=== PATIENT | female | born 1950 | race Caucasian/White ===

== ENCOUNTER → 2020-02-15 10:57 | Outpatient (BNVA) | payer MEDICARE, SELFPAY | PROVIDERS: Family Provider Nurse Practitioner Family; PCP Nurse Practitioner Family; Visit Provider Nurse Practitioner | DX: I10 Essential (primary) hypertension (principal); E78.2 Mixed hyperlipidemia | CPT/HCPCS: 80053; 80061; 81000; 84443; 85025 ==

== ENCOUNTER 2020-08-28 19:22 | Emergency (ER) | payer MEDICARE, SELFPAY ==
[2020-08-28 19:32] VITALS: BP 118/71; PULSE 73; RESP 18; TEMP 36.3; O2SAT 100; BMI 25.7
--- NOTE | 2020-08-28 19:44 | XRR_ITS ---
PROCEDURE INFORMATION: Exam: XR Left Elbow Exam date and time: 08/28/2020 8:05 PM Age: 70 years old Clinical indication: Injury or trauma; Fall; Blunt trauma (contusions or hematomas); Elbow; Left; Injury date: 08/28/20 TECHNIQUE: Imaging protocol: XR Left elbow. Views: 3 or more views. COMPARISON: No relevant prior studies available. FINDINGS: Bones/joints: Acute angulated displaced fractures of the proximal radius and ulna diaphysis with overriding. Soft tissues: Soft tissue edema proximal forearm. XR/XR elbow LT min 3V* [id number] IMPRESSION: Proximal diaphyseal angulated displaced fractures radius and ulna.
--- NOTE | 2020-08-28 20:04 | XRR_ITS ---
PROCEDURE INFORMATION: Exam: XR Left Forearm Exam date and time: 08/28/2020 8:06 PM Age: 70 years old Clinical indication: Injury or trauma; Fall; Blunt trauma (contusions or hematomas); Arm, lower; Left; Injury date: 08/28/20 TECHNIQUE: Imaging protocol: XR Left forearm. Views: 2 views. COMPARISON: CR XR elbow LT min 3V* [id number] 08/28/2020 8:35 PM FINDINGS: Bones/joints: Complete overriding displaced fractures at the junction of proximal to mid diaphysis of the radius and ulna with distal fracture fragments displaced posteriorly. Soft tissues: Soft tissue edema overlies the proximal forearm. XR/XR forearm LT 2V [id number] IMPRESSION: Acute displaced overriding fractures see radius and ulna at the junction of proximal to mid 1/3 diaphysis.
--- NOTE | 2020-08-28 20:04 | XRR_ITS ---
PROCEDURE INFORMATION: Exam: XR Left Wrist Exam date and time: 08/28/2020 8:06 PM Age: 70 years old Clinical indication: Injury or trauma; Fall; Blunt trauma (contusions or hematomas); Wrist; Left; Injury date: 08/28/20 TECHNIQUE: Imaging protocol: XR Left wrist. Views: 3 or more views. COMPARISON: No relevant prior studies available. FINDINGS: Bones/joints: Osteopenia. Accessory ossicle adjacent to the radial 1st metacarpophalangeal joint. Soft tissues: Normal. XR/XR wrist LT min 3V* [id number] IMPRESSION: 1. No acute osseous abnormality.
--- NOTE | 2020-08-28 20:10 | ED_ITS ---
HPI - Fall General: Chief Complaint: Fall Stated Complaint: extremity injury, left arm Time Seen by Provider: 08/28/20 20:01 Source: patient Mode of arrival: ambulatory Limitations: no limitations History of Present Illness: HPI Narrative: Briseida is a nice 70-year-old female who suffered a trip and fall at home. She landed on her left arm. She is complaining of pain to the left elbow, left forearm and left wrist. Patient states she heard a snap there. She denies any distal numbness, tingling or weakness. Patient denies any head or neck injury. Associated symptoms-after fall: Denies abdominal pain, chest pain, confusion, difficulty walking, headache(s), hematuria, lightheadedness, neck pain or vertigo Review of Systems Const: Denies: fever(s), chills, body aches, fatigue, malaise or diaphoresis Eyes: Denies: change in vision, blurry vision, photophobia, eye discomfort, eye discharge, eye redness or yellow eyes ENMT: Denies: throat pain, odynophagia, hoarseness, swelling of lips/tongue, ear or mastoid pain, ear discharge, change in hearing or nasal discharge Card: Denies: chest pain, palpitations, irregular heart rhythm, edema, lightheadedness, syncope, pre-syncope, dyspnea on exertion or orthopnea Resp: Denies: dyspnea, productive cough, non-productive cough, wheezing, hemoptysis or chest congestion GI: Denies: abdominal pain, nausea, vomiting, hematemesis, coffee ground emesis, heartburn, diarrhea, constipation, GI cramping, hematochezia or melena : Denies: flank pain, dysuria, urinary frequency, urinary urgency or hematuria Musc: Reports: extremity pain; Denies: neck pain, back pain, extremity swelling, joint pain, joint swelling, joint redness, joint warmth or joint stiffness Skin/Breast: Denies: rash, pruritus, erythema, skin pain or skin tenderness Neuro: Denies: headache(s), numbness in extremities, weakness in extremities, sensory changes, lack of coordination, difficulty walking, dizziness, vertigo, confusion, Slurred speech present or seizure-like activity Nima/Lymph: Denies: easy bruising, easy bleeding, petechiae, purpura or enlarged lymph nodes All/Imm: Denies: urticaria, throat swelling, tongue swelling, facial swelling or acute wheezing [facility] ED PFSH: Medical History (Updated 08/28/20 @ 21:52 by Ryanne Saucedo) Essential (primary) hypertension Hepatic cyst 3cm 05/[address] 2018 Mixed hyperlipidemia Surgical History History of colonoscopy 2018 Hx of appendectomy Hx of endoscopy 2019 Hx of ovarian cyst Family History Mother Stroke Brother CAD (coronary artery disease) Denies family history of Clotting disorder Anesthesia complication Social History Smoking and tobacco status: never smoked Second hand smoke exposure: No Smoking risk assessment/counseling performed?: No Alcohol intake: never Desire information about alcohol rehabilitation?: No Counseling given: No Desire information about substance/drug rehabilitation?: No Counseling given: No Adopted: No Caregiver/support person: No Lives independently: Yes Household members: none Housing: House Marital status: / Number of children: 2 service: No Current occupational status: retired Current occupational exposures/hazards: No History of recent travel: No Current gender identity: Female Course ED course: 2227 - Vital Signs: Vital signs: Vital Signs Temperature 97.4 F L 08/28/20 19:32 Pulse Rate 74 08/28/20 21:22 Respiratory Rate 16 08/28/20 21:22 Blood Pressure 133/68 08/28/20 21:22 Pulse Oximetry 94 08/28/20 21:22 MDM - Fall MDM Narrative: Medical decision making narrative: 2157 - Briseida is a very nice 70-year-old female who comes in complaining of pain in her left forearm after falling. She denies any injury to her head, neck or any other part of her body. She is now on blood thinners. Patient only has a history of hypertension. I reviewed the x-rays with Dr. Walter who wants the patient splinted but no attempt at reduction tonight. He plans to take the patient to surgery on Tuesday for definitive care. Of note the patient had an arterial cannulation of her right brachial artery by nursing. She had some skin changes after morphine and Zofran were given. The IV was discontinued and at this time the skin changes have resolved. The patient has had multiple radial pulse checks and they are strong without any difference from the left. I did review this with Dr. Garsia who felt that this was adequate but if the patient noticed any changes such as coldness to her hand, numbness or weakness that she would need to return to the ER immediately. Dr. Walter was aware of this as well. Imaging Data^: Left wrist/forearm/Elbow: Attestation: I personally reviewed and interpreted this imaging study as follows: My impression: Midshaft forearm fracture involving both radius and ulna with 100% displacement and shortening Discharge Plan Discharge Patient Disposition: Home Clinical Impression: Forearm fractures, both bones, closed Qualifiers: Encounter type: initial encounter Laterality: left Qualified Code(s): S52.92XA - Unspecified fracture of left forearm, initial encounter for closed fracture Condition: Stable Prescriptions: [place] 5-325 mg tablet 1 tab PO Q6H PRN (Reason: pain) 5 Days Qty: 20 RF: 0 Zofran 4 mg tablet 4 mg PO Q6H PRN (Reason: nausea and vomiting) Qty: 20 RF: 0 No Action amlodipine 10 mg tablet 10 mg PO DAILY Qty: 90 RF: 1 lisinopril 20 mg tablet 20 mg PO DAILY Qty: 90 RF: 1 lovastatin 40 mg tablet 40 mg PO DAILY Qty: 90 RF: 1 Discharge Orders: Discharge Order (Routine); Ordered 08/28/20 Ordered By: Ryanne Saucedo Referrals: Brandie Allred FNP-C [Primary Care Provider] - Harsha Walter MD [Physician] - 1-3 days (Call Dr. Walter's office first thing tomorrow morning and they may contact you as well for the plan on surgery to fix your fractures.) Discharge Diet: Advance as tolerated Discharge Activity: Limit activity as instructed Patient Instructions: Fractures - Forearm Activity Restrictions/Additional Instructions: Please return to the ER immediately for any of the signs or symptoms listed on your discharge instruction sheets, worsening/changing of your symptoms, you are not getting better as quickly as expected, or for ANY other cause or concerns. Use your splint and sling at all times until instructed further by Dr. Walter. Return to the ER for numbness, weakness, uncontrolled pain, or for any other cause for concern. Coding Level of Care Code ED Analytical Statistician for Hermann Mclain
[2020-08-28 20:21] VITALS: RESP 18
[2020-08-28] MEDS: morphine 4 mg/mL SDV 1 mL IVP (20:21)
[2020-08-28] MEDS: ondansetron 2 mg/ML SDV 2 mL 4 MG IVP (20:22)
[2020-08-28] MEDS: sodium chloride 0.9% 1,000 ML 100 ML IV (21:04)
--- NOTE | 2020-08-28 21:19 | XRR_ITS ---
PROCEDURE INFORMATION: Exam: XR Chest, 1 View Exam date and time: 08/28/2020 9:23 PM Age: 70 years old Clinical indication: Pre-operative exam; Cardiovascular screening and respiratory screening exam; Additional info: Pre op TECHNIQUE: Imaging protocol: XR of the chest Views: 1 view. COMPARISON: No relevant prior studies available. FINDINGS: Lungs: 0.9 cm hyperdense nodule right upper lung most suspicious for calcified granuloma. Possible hilar calcified granulomata. No focal consolidation. Pleural space: Unremarkable. No pleural effusion. No pneumothorax. Heart/Mediastinum: Unremarkable. No cardiomegaly. Bones/joints: Osteopenia. XR/XR chest 1V portable [id number] IMPRESSION: No acute cardiopulmonary process.
[2020-08-28 21:22] VITALS: BP 133/68; PULSE 74; RESP 16; O2SAT 94
[2020-08-28] MEDS: HYDROcodone-acetaminophen 5-325 mg Tablet 2 TAB PO (22:29)
[2020-08-28] MEDS: HYDROcodone-acetaminophen 5-325 mg Tablet 1 TAB PO (22:29)
[2020-08-28 22:35] VITALS: BP 129/89; PULSE 89; RESP 16; O2SAT 94
== END 2020-08-28 22:37 | disposition home or self-care (01) ==
PROVIDERS: Emergency Provider Emergency Medicine; PCP Nurse Practitioner Family
DX: S52.182A Other fracture of upper end of left radius, initial encounter for closed fracture (principal); S52.092A Other fracture of upper end of left ulna, initial encounter for closed fracture; W01.0XXA Fall on same level from slipping, tripping and stumbling without subsequent striking against object, initial encounter; I10 Essential (primary) hypertension; E78.2 Mixed hyperlipidemia
CPT/HCPCS: 12345; 29125; 71045; 73080; 73090; 73110; 96361; 96374; 96375; 99283; J2270; J2405; J7030

== ENCOUNTER → 2020-08-29 17:07 | Outpatient (BNVA) | payer MEDICARE, SELFPAY | PROVIDERS: PCP Nurse Practitioner Family; Visit Provider Orthopaedic Surgery | DX: Z11.59 Encounter for screening for other viral diseases (principal); Z01.818 Encounter for other preprocedural examination | CPT/HCPCS: 87635 ==

== ENCOUNTER 2020-09-01 11:30 | Day surgery (SDC) | payer MEDICARE, SELFPAY ==
[2020-08-30 09:26] VITALS: BMI 25.7
[2020-09-01] VITALS (7 sets, daily range): BP systolic 106–133; BP diastolic 62–72; PULSE 75–96; RESP 16–24; TEMP 36.2–36.8; O2SAT 96–100
--- NOTE | 2020-09-01 | SCC_ITS ---
Procedure Done: Open reduction and internal fixation left radial and ulnar shaft 16.8 seconds of fluoroscopic guidance, for a cumulative dose of 0.43 mGy, was provided to Dr. Walter by the radiology department. C-arm images of the - were saved for the patient's permanent record. [facility]
--- NOTE | 2020-09-01 | XR_ITS ---
WS: [id number] Exam: XR forearm LT 2V [id number] Date/Time of Exam: 09/01/2020 12:00 AM Reason For Exam: OR PICS Limited intraoperative images of the left forearm are submitted for evaluation. Fractures of the proximal diaphyses of the radius and ulna are now stabilized with a plate and screw fixation. Both fractures appear to be in anatomic alignment for healing.
[2020-09-01] MEDS: sodium chloride 0.9% 1,000 ML 30 ML IV (12:40)
--- NOTE | 2020-09-01 12:51 | P.HP_ITS ---
Same Day Surgery H&P Indication for Procedure/HPI DATE OF PROCEDURE: September 01, 2020 CHIEF COMPLAINT/INDICATIONFOR SURGICAL PROCEDURE: Left both bone forearm fracture, displaced and unstable PREOP DIAGNOSIS: Left both bone forearm fracture PLANNED PROCEDRUE: Operation Date: 09/01/20 12:15 Proposed Procedures p ORIF L radius and ulna shaft 85546 S52.92XA(Left) - Harsha Walter MD Ms. Byrne is a 70-year-old female who fell evening at a bonfire in her backyard when she tripped over a block of wood. She noted immediate pain and deformity. She was seen in our emergency room where radiographs revealed a left both bone forearm fracture. She is splinted and was scheduled for surgery today. She states the pain has not been terrible. She was given hydrocodone which made her sick. She denies any other extremity injury. ROS She has no numbness or tingling in her left upper extremity. She has no fevers or chills. She has no neck or back pain. She has no history of unusual bleeding. She has no history of chest pain shortness of breath or palpitations. Medications/Allergies* Allergies/Adverse Reactions Allergy/AdvReac Type Severity Reaction Status Date / Time No Known Allergies Allergy Verified 08/28/20 21:21 Pertinent History/Comorbid Conditions* Medical History (Updated 08/28/20 @ 21:52 by Ryanne Saucedo) Essential (primary) hypertension Hepatic cyst 3cm 05/[address] 2018 Mixed hyperlipidemia Surgical History (Updated 02/15/20 @ 10:45 by ADELA Rudolph) History of colonoscopy 2019 Hx of appendectomy Hx of endoscopy 2019 Hx of ovarian cyst Family History (Updated 02/15/20 @ 09:02 by Addie Rain LPN) CAD (coronary artery disease) Brother Stroke Mother Denies family history of Clotting disorder Anesthesia complication Social History Smoking and tobacco status: never smoked Second hand smoke exposure: No Smoking risk assessment/counseling performed?: No Alcohol intake: never Desire information about alcohol rehabilitation?: No Counseling given: No Desire information about substance/drug rehabilitation?: No Counseling given: No Adopted: No Caregiver/support person: No Lives independently: Yes Household members: none Housing: House Marital status: / Number of children: 2 service: No Current occupational status: retired Current occupational exposures/hazards: No History of recent travel: No Current gender identity: Female Pertinent Exam Findings alert, oriented x 3, clear to auscultation bilaterally, regular rate & rhythm, operative site marked and procedure specific exam findings The patient has a splint on her left upper extremity. She can flex extend her ulnar 4 fingers as well as extend and oppose her thumb. Her sensation is intact light touch in left hand. She has good capillary refill in her digits. Pertinent Data PERTINENT DATA: I reviewed radiographs left forearm. The patient has a displaced midshaft left radial and ulnar fractures Recommendations Surgery/Procedure today Other Plans: I discussed the treatment of unstable both bone forearm fractures with the patient. I told them that typically function will be best if the fractures are brought to length and lined and active motion is initiated. I told him without surgery union made to be difficult to obtain and malreduction would be likely with loss of a function. I discussed risk with surgery including bleeding, infection, and unlikely blood vessel or nerve injury. I dis cussed the possible need for further procedures including hardware removal. I discussed risk inherent in anesthesia, although she is healthy and I think these would be very unlikely. She press good understanding and agrees to proceed with surgery Coding Level of Care Code Acute Zinc Chloride Operator for Hermann Mclain
[2020-09-01] MEDS: midazolam 1 mg/mL INJ 2 mL 2 MG IVP (13:15)
--- NOTE | 2020-09-01 13:25 | ANES.PREANE2 ---
Pre-Anesthetic Assessment Pre-Anesthetic Assessment: Height/Weight: Height 1.73 m Weight 76.657 kg Temp Pulse Resp BP Pulse Ox 98.3 F 75 18 133/65 99 09/01/20 12:07 09/01/20 12:07 09/01/20 12:07 09/01/20 12:07 09/01/20 12:07 Preop Diagnosis: Left both bone forearm fracture Proposed Procedure: Operation Date: 09/01/20 12:15 Proposed Procedures p ORIF L radius and ulna shaft 99996 S52.92XA(Left) - Harsha Walter MD Familial anesthetic complications: none Was Beta Sylvie taken within 24 hours: N/A Last intake: Intake Last Liquid Date 09/01/20 Last Liquid Time 18:30 Last Solid Date 08/31/20 Last Solid Time 19:00 Social: Social History: No alcohol and No tobacco Exam: Pre-Anes Outpt Exam: alert, oriented x 3, clear to auscultation bilaterally and regular rate & rhythm Airway: Cervical ROM: WNL MP: 2 Dentition: Full CV/HEM: CV/HEM: HTN Metabolic: Metabolic: Hyperlipidemia Anesthetic Plan: ASA status: 2 Anesthesia: General and Regional (specify below) Risk of > 500 ml blood loss (7ml/kg in children): No PFSH Anesthesia PFSH: Medical History (Updated 08/28/20 @ 21:52 by Ryanne Saucedo) Essential (primary) hypertension Hepatic cyst 3cm 05/[address] 2018 Mixed hyperlipidemia Surgical History History of colonoscopy 2019 Hx of appendectomy Hx of endoscopy 2019 Hx of ovarian cyst Family History Mother Stroke Brother CAD (coronary artery disease) Denies family history of Clotting disorder Anesthesia complication Social History Smoking and tobacco status: never smoked Second hand smoke exposure: No Smoking risk assessment/counseling performed?: No Alcohol intake: never Desire information about alcohol rehabilitation?: No Counseling given: No Desire information about substance/drug rehabilitation?: No Counseling given: No Adopted: No Caregiver/support person: No Lives independently: Yes Household members: none Housing: House Marital status: / Number of children: 2 service: No Current occupational status: retired Current occupational exposures/hazards: No History of recent travel: No Current gender identity: Female Data Anesthesia Cardiac Studies: No Data to Display
--- NOTE | 2020-09-01 13:26 | ANES.PROC ---
Anesthesia Procedures Procedure/Date: 09/01/20 Nerve Block ^: Nerve Block 1: Main Anesthesia: general anesthesia Time Out Performed: Yes Consent: requested by attending/covering physician, from patient, from other, risks and benefits reviewed and patient agrees to proceed Nerve block location: axillary (L) Anesthesia monitors applied: pulse oximetry, EKG, BP cuff and oxygen Nerve block position: supine Anesthetic Used: ropivicaine 0.5% and with decadron (4 mg) Amount of anesthesia used (mL): 30 Ultrasound used to: recognize landmarks Nerve Stimulator Used?: No Interscalene/Femoral BLK: 2 stimuplex 22 g needle used for position and inplane approach, other needle, visualize local anesthetic spread and no vascular puncture identified Injection: neg aspiration of heme Patient Tolerated Procedure: well and no complications Complications: none
--- NOTE | 2020-09-01 15:12 | PM.OP ---
Operative Report Date of procedure: September 01, 2020 Pre-op Diagnosis: Left both bone forearm fracture Post-op diagnosis: same Post-op Findings: Same Procedure Done: Open reduction and internal fixation left radial and ulnar shaft Pathology: none sent Surgeon: Harsha Walter Anesthesia: General Estimated blood loss (mL): 25 Tourniquet time (min): 54 Findings: The patient had a transverse fracture of the proximal radial shaft and a comminuted oblique proximal ulnar shaft fracture Condition: stable Disposition: PACU Procedure: The patient was taken the operating room and given a general anesthesia. She is given 2 g of Ancef. She is prepped and draped in the supine position with a tourniquet on the left upper forearm. The tourniquet was initially inflated 225 mmHg. Initial attention was paid to the radius. A 8 cm long incision was made just distal to the distal elbow crease along the volar and radial forearm. The interval between the brachoradialis and the pronator teres was identified. The radial artery and nerve were retracted with the brachoradialis. The periosteum was elevated off of the volar radial shaft including the distal pronator teres. Lobster-claw clamps were used to bring the distal radius into alignment it was provisionally held with a K wire. A 7 hole narrow Beltran Varuax was contoured over the radius and fixed proximally and distally with 3: Providing compression across the fracture. Next a 8 cm long incision was made over the border of the ulna and dissection carried down to the bone. Lobster-claw clamps were used to maintain reduction of the fracture locking the large radial butterfly fragment into place proximally and distally. A smaller medial comminuted fragment was too small for fixation and was not addressed. An 8 hole plate was placed with 3 proximal and 3 distal screws engaging in both sides the comminution. A second screw was passed through the plate engaging the apex of the distal fragment. Intraoperative imaging showed satisfactory alignment of the fracture. All wounds were irrigated with saline. The brachial radialis musculature was approximated to the deep anterior fascia the right coverage over the volar plate. Subcutaneous tissue was closed over the ulnar incision with 2-0 Vicryl. Skin incisions were closed with 2-0 Vicryl. Wounds were covered with Xeroflo gauze 4 x 4s, cotton padding, a volar splint, and 3 inch Tho. Patient was extubated and taken recovery in stable condition.
--- NOTE | 2020-09-01 15:16 | SUR.PHASEI ---
RECIEVED PT SLEEPY WITH GOOD RESP NOTED VSS IV PATENT ORAL AIRWAY IN PLACE LT ARM DRESSING D/I SLING IN PLACE DISTAL FINGERS PINK WARM WITH CAP REFILL LESS THAN 3 SECONDS..
--- NOTE | 2020-09-01 16:10 | ANE.PACU2 ---
Inpatient post-anesthesia follow up: Airway intact: Yes Vital signs: Temperature 97.4 F Pulse Rate 87 Respiratory Rate 18 Blood Pressure 129/62 Pulse Oximetry 98 Oxygen Delivery Me thod Room Air Oxygen Flow Rate 8 Fraction of Inspir ed Oxygen Hydration adequate: Yes Nausea and vomiting: No Pain level: 2 Mental status: Baseline
== END 2020-09-01 16:10 | disposition home or self-care (01) ==
PROVIDERS: PCP Nurse Practitioner Family; Visit Provider Orthopaedic Surgery
PROC: (CPT 25575; principal; 2020-09-01 12:15)
DX: S52.302A Unspecified fracture of shaft of left radius, initial encounter for closed fracture (principal); S52.202A Unspecified fracture of shaft of left ulna, initial encounter for closed fracture; W01.0XXA Fall on same level from slipping, tripping and stumbling without subsequent striking against object, initial encounter; E78.2 Mixed hyperlipidemia; Z82.49 Family history of ischemic heart disease and other diseases of the circulatory system; Z82.3 Family history of stroke; I10 Essential (primary) hypertension
CPT/HCPCS: 25575; 12345; 64417; 73090; 76000; 96365; C1713; J0690; J1100; J2250; J2405; J2704; J2795; J3010; J3490; J7030

== ENCOUNTER → 2020-10-14 11:13 | Outpatient (BNVA) | payer MEDICARE, SELFPAY | PROVIDERS: PCP Nurse Practitioner Family; Visit Provider Orthopaedic Surgery | DX: S52.92XA Unspecified fracture of left forearm, initial encounter for closed fracture (principal); S52.202A Unspecified fracture of shaft of left ulna, initial encounter for closed fracture; Z98.890 Other specified postprocedural states; X58.XXXA Exposure to other specified factors, initial encounter | CPT/HCPCS: 73090 ==

== ENCOUNTER → 2020-11-11 10:16 | Outpatient (BNVA) | payer MEDICARE, SELFPAY | PROVIDERS: PCP Nurse Practitioner Family; Visit Provider Orthopaedic Surgery | DX: S52.92XA Unspecified fracture of left forearm, initial encounter for closed fracture (principal); S52.202A Unspecified fracture of shaft of left ulna, initial encounter for closed fracture; Z98.890 Other specified postprocedural states; X58.XXXA Exposure to other specified factors, initial encounter | CPT/HCPCS: 73090 ==

== ENCOUNTER → 2021-02-16 08:37 | Outpatient (BNVA) | payer MEDICARE, SELFPAY | PROVIDERS: PCP Nurse Practitioner Family; Visit Provider Nurse Practitioner Family | DX: I10 Essential (primary) hypertension (principal); E78.2 Mixed hyperlipidemia; Z91.010 Allergy to peanuts | CPT/HCPCS: 80053; 80061; 84443; 85025 ==

== ENCOUNTER → 2021-08-17 08:45 | Outpatient (BNVA) | payer MEDICARE, SELFPAY | PROVIDERS: PCP Nurse Practitioner Family; Visit Provider Nurse Practitioner Family | DX: I10 Essential (primary) hypertension (principal); E78.2 Mixed hyperlipidemia | CPT/HCPCS: 80053; 80061; 84443; 85025 ==

== ENCOUNTER 2021-10-12 14:34 | Outpatient (CLI) | payer MEDICARE, SELFPAY ==
--- NOTE | 2021-10-12 15:00 | USCV_ITS ---
Briseida Byrne Age: 71 Gender: F : 1950 Exam Date: 10/12/2021 14:58 Ordering Phys: Brandie Allred SPRING MANUFACTURING SET UP TECHNICIAN-Val Technologist: ROSALINDA [place] [facility] [place]: Mixed hyperlipidemia BP: 122 / 64 HR: 79 Rhythm: Sinus Technical Quality: Adequate MEASUREMENTS (Male / Female) Normal Values 2D ECHO LV Diastolic Diameter PLAX 4.1 cm 4.2 - 5.9 / 3.9 - 5.3 cm LV Systolic Diameter PLAX 2.7 cm IVS Diastolic Thickness 0.9 cm 0.6 - 1.0 / 0.6 - 0.9 cm IVS Systolic Thickness 1.4 cm LVPW Diastolic Thickness 0.8 cm 0.6 - 1.0 / 0.6 - 0.9 cm LVPW Systolic Thickness 1.1 cm LVOT Diameter 2.0 cm LV Ejection Fraction 2D Teich 62.8 % LV Ejection Fraction MOD 2C 57.4 % LV Ejection Fraction 2C AL 59.4 % LA Diameter 3.0 cm Aorta at Sinotubular Diameter 2.2 cm M-MODE MV E Point Septal Separation 0.1 cm DOPPLER AV Peak Velocity 141.0 cm/s LVOT Peak Velocity 120.0 cm/s AV Area Cont Eq vti 2.6 cm squared AV Area Cont Eq pk 2.7 cm squared MV Area PHT 5.0 cm squared Mitral E to A Ratio 1.0 MV E' Velocity 47.0 cm/s Mitral E to MV E' Ratio 10.4 Mitral E to LV E' Lateral Ratio 13.0 Mitral E to LV E' Septal Ratio 8.7 TR Peak Velocity 265.0 cm/s TR Peak Gradient 28.1 mmHg TV Peak E Velocity 65.0 cm/s PV Peak Velocity 106.0 cm/s RV Acceleration Time 0.1 s RV Ejection Time 0.3 s RV AcT/ET 0.5 FINDINGS Left Ventricle Normal left ventricular size and systolic function, EF 66 %. No regional wall motion abnormalities. Right Ventricle The right ventricle is normal in size and function. Right Atrium The right atrium is normal in size. Left Atrium The left atrium is normal in size. Mitral Valve Thickened mitral valve. Aortic Valve Trace aortic valve regurgitation. Tricuspid Valve No gross abnormalities noted Pulmonic Valve Pulmonic valve not well visualized. Pericardium Normal pericardium without effusion. Aorta Normal ascending aorta dimension. CONCLUSIONS Normal left ventricular size and systolic function, EF 66 %. No regional wall motion abnormalities. Thickened mitral valve. Trace aortic valve regurgitation. There is no pericardial effusion. There are no intracardiac masses. No previous study is available for comparison. Dr Stephanie Reyes MD FACC (Electronically Signed) Final Date: 13 October 2021 16:02 S
== END 2021-10-12 14:35 | disposition home or self-care (01) ==
LOC: RAD 14:36
PROVIDERS: PCP Nurse Practitioner Family; Visit Provider Nurse Practitioner Family
DX: E78.2 Mixed hyperlipidemia (principal); R01.1 Cardiac murmur, unspecified; I10 Essential (primary) hypertension; I08.0 Rheumatic disorders of both mitral and aortic valves
CPT/HCPCS: 93306

== ENCOUNTER → 2022-02-08 08:58 | Outpatient (BNVA) | payer MEDICARE, SELFPAY | PROVIDERS: PCP Nurse Practitioner Family; Visit Provider Nurse Practitioner Family | DX: I10 Essential (primary) hypertension (principal); E78.2 Mixed hyperlipidemia | CPT/HCPCS: 80053; 80061; 84443; 85025 ==

== ENCOUNTER → 2022-08-02 08:57 | Outpatient (BNVA) | payer MEDICARE, SELFPAY | PROVIDERS: PCP Nurse Practitioner Family; Visit Provider Nurse Practitioner Family | DX: E78.2 Mixed hyperlipidemia (principal); I10 Essential (primary) hypertension | CPT/HCPCS: 80053; 80061; 84443; 85025 ==

== ENCOUNTER 2022-10-04 19:20 | Emergency (ER) | payer MEDICARE, SELFPAY ==
--- NOTE | 2022-10-04 19:39 | XRR_ITS ---
PROCEDURE INFORMATION: Exam: XR Chest Exam date and time: 10/04/2022 7:52 PM Age: 72 years old Clinical indication: Cough and shortness of breath and other: Chest pains; Additional info: Cp TECHNIQUE: Imaging protocol: Radiologic exam of the chest. Views: 1 view. COMPARISON: CR XR chest 1V portable [id number] 08/28/2020 8:56 PM FINDINGS: Lungs: The lungs are clear. Incidental right upper lobe calcified granuloma. Pleural spaces: Unremarkable. No pleural effusion. No pneumothorax. Heart/Mediastinum: Unremarkable. No cardiomegaly. Bones/joints: Unremarkable. XR/XR chest 1V portable [id number] IMPRESSION: No change, lungs clear
[2022-10-04 19:44] VITALS: BP 139/74; PULSE 101; RESP 18; TEMP 36.4; O2SAT 97; BMI 25.0
--- NOTE | 2022-10-04 19:45 | ECG_ITS ---
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 Measurements Intervals [place] Rate: 90 P: 83 FL: 169 QRS: 68 QRSD: 77 T: 62 QT: 349 QTc: 428 Interpretive Statements SINUS RHYTHM WITH SINUS ARRHYTHMIA MODERATE ST DEPRESSION [0.05+ mV ST DEPRESSION] No previous ECG available for comparison Electronically Signed On 10-05-2022 17:47:42 CARGO SERVICE SUPERVISOR by Víctor Garsia M.D. [email or web address]
--- NOTE | 2022-10-04 20:03 | ED_ITS ---
HPI - SOB/Dyspnea General: Chief Complaint: Shortness of Breath/Dyspnea Stated Complaint: Pin Between Shoulder Blades\SOB Time Seen by Provider: 10/04/22 19:49 History of Present Illness: HPI Narrative: Patient comes in with chest pain which she describes as midsternal, pressure, started in her back, off and on for the last 6 weeks then constant for the last 2 days. Denies fever, cough, congestion, vomiting, or diarrhea. He denies any abdominal pain. Denies any history of smoking or coronary artery disease herself. He also denies any history of blood clot and/or cancer. Does have a strong family history of heart problems. Associated symptoms: Reports chest pain; Deny abdominal pain, fever(s), nausea, palpitations, polyuria or vomiting Review of Systems Const: Denies: fever(s) or body aches Eyes: Denies: change in vision or blurry vision ENMT: Denies: throat pain or odynophagia Card: Reports: chest pain; Denies: palpitations Resp: Denies: dyspnea or productive cough GI: Denies: abdominal pain, nausea or vomiting : Denies: flank pain or dysuria Musc: Denies: neck pain or back pain Skin/Breast: Denies: rash or pruritus Neuro: Denies: headache(s) or numbness in extremities Psych: Denies: anxiety or change in appetite Endo: Denies: polyuria or excessive sweating PFSH ED PFSH: Medical History (Updated 10/04/22 @ 22:53 by Zay Chawla MD) Essential (primary) hypertension Hepatic cyst 3cm 05/[address] 2018 Mixed hyperlipidemia Surgical History History of colonoscopy 2019 Hx of appendectomy Hx of endoscopy 2019 Hx of ovarian cyst Family History Mother Stroke Brother CAD (coronary artery disease) Denies family history of Clotting disorder Anesthesia complication Social History Smoking and tobacco status: never smoked Second hand smoke exposure: No Smoking risk assessment/counseling performed?: No Alcohol intake: never Desire information about alcohol rehabilitation?: No Counseling given: No Desire information about substance/drug rehabilitation?: No Counseling given: No Adopted: No Caregiver/support person: No Lives independently: Yes Household members: none Housing: House Marital status: / Number of children: 2 service: No Current occupational status: retired Current occupational exposures/hazards: No History of recent travel: No Current gender identity: Female Physical Exam Const: COMMON NORMALS: no acute distress, patient oriented x3, healthy appearing and alert HENMT: COMMON NORMALS: normocephalic and atraumatic HEAD & SCALP: normocephalic and atraumatic Eye: COMMON NORMALS: Equal, round and reactive pupils present and EOMs intact bilaterally PUPIL: Yes Equal, round and reactive pupils present Neck/C-Spine: COMMON NORMALS: full ROM and supple Resp: COMMON NORMALS: normal respiratory effort, No retractions and No use of accessory muscles Cardio: COMMON NORMALS: regular rate and regular rhythm RATE: regular rate RHYTHM: regular rhythm GI: COMMON NORMALS: Normal to inspection, nondistended, normoactive bowel josee nds present, Soft to palpation and non-tender PALPATION: Yes Soft to palp ation Back/Pelvis: COMMON NORMALS: thoracic and lumbar spine normal to inspection and no thoracic nor lumbar tenderness Extremity: COMMON NORMALS: normal to inspection and full ROM Neuro: COMMON NORMALS: patient oriented x3 SENSORIUM/ORIENTATION: Yes alert Psych: COMMON NORMALS: mental status grossly normal and cooperative Skin: COMMON NORMALS: no rashes or lesions noted and no wounds GENERAL SKIN EXAM: no rashes or lesions noted Course Vital Signs: Vital signs: Vital Signs Temperature 97.6 F 10/04/22 19:44 Pulse Rate 72 10/04/22 20:53 Respiratory Rate 16 10/04/22 20:53 Blood Pressure 133/70 10/04/22 20:53 Pulse Oximetry 97 10/04/22 20:53 Oxygen Delivery Me thod 10/04/22 20:28 MDM - SOB/Dyspnea Medical Decision Making Patient comes in with chest pain which she describes as midsternal, pressure, started in her back, off and on for the last 6 weeks then constant for the last 2 days. Denies fever, cough, congestion, vomiting, or diarrhea. He denies any abdominal pain. Denies any history of smoking or coronary artery disease herself. He also denies any history of blood clot and/or cancer. Does have a strong family history of heart problems. Physical exam is unremarkable. Will check labs, EKG, CT, and reassess. On reassessment I talked to the patient about the test results. Will discharge home at this time with precautions return for worsening or changing symptoms. Lab Data 10/04/22 19:50 10/04/22 19:50 Labs/Radiology: Radiology Impressions Chest X-Ray 10/04/22 19:39 IMPRESSION: No change, lungs clear Chest CTA 10/04/22 20:26 IMPRESSION: 1. No pulmonary embolism or pneumonia. 2. No thoracic aortic aneurysm or dissection. 3. Hiatus hernia. 4. Other chronic or incidental findings as described. Laboratory Results WBC 10.7 10^3/uL (4.0-10.0) H 10/04/22 19:50 RBC 4.99 10^6/uL (4.1-5.3) 10/04/22 19:50 Hgb 14.2 g/dL (11.5-15.3) 10/04/22 19:50 Hct 43.9 % (37.0-47.0) 10/04/22 19:50 MCV 88.0 fl (81-99) 10/04/22 19:50 MCH 28.5 pg (28.0-34.0) 10/04/22 19:50 MCHC 32.3 g/dL (30.0-36.0) 10/04/22 19:50 RDW 12.5 % (12.1-15.1) 10/04/22 19:50 Plt Count 227 10^3/cmm (130-400) 10/04/22 19:50 MPV 13.0 fL (7.4-10.4) H 10/04/22 19:50 Neut % (Auto) 58.5 % 10/04/22 19:50 Lymph % (Auto) 30.2 % 10/04/22 19:50 [place] % (Auto) 8.9 % 10/04/22 19:50 Eos % (Auto) 1.4 % 10/04/22 19:50 Baso % (Auto) 0.8 % 10/04/22 19:50 Neut # (Auto) 6.24 10^3/uL (1.8-7.7) 10/04/22 19:50 Lymph # (Auto) 3.2 10^3/uL (0.8-4.8) 10/04/22 19:50 [place] # (Auto) 1.0 10^3/uL (0.2-0.9) H 10/04/22 19:50 Eos # (Auto) 0.2 10^3/uL (0.0-0.8) 10/04/22 19:50 Baso # (Auto) 0.1 10^3/uL (0.0-0.1) 10/04/22 19:50 Nucleated RBC % (auto) 0 % 10/04/22 19:50 Nucleated RBCs # 0.0 /100WBC 10/04/22 19:50 D-Dimer 0.43 ug/mIFEU (0-0.59) 10/04/22 19:50 Sodium 142 mmol/L (136-145) 10/04/22 19:50 Potassium 3.6 mmol/L (3.5-5.1) 10/04/22 19:50 Chloride 104 mmol/L (98-107) 10/04/22 19:50 Carbon Dioxide 24 mmol/L (22-29) 10/04/22 19:50 Anion Gap 17.6 (5-19) 10/04/22 19:50 BUN 16 mg/dL (8-23) 10/04/22 19:50 Creatinine 0.7 mg/dL (0.5-0.9) 10/04/22 19:50 GFR Calculation 82.7 mL/min (90-130) L 10/04/22 19:50 Glucose 116 mg/dL (65-115) H 10/04/22 19:50 Calculated Osmolality 296 mOsm/kg (285-295) H 10/04/22 19:50 Calcium 9.4 mg/dL (8.5-10.5) 10/04/22 19:50 Total Bilirubin 0.7 mg/dL (0.15-1.2) 10/04/22 19:50 AST 24 U/L (0-32) 10/04/22 19:50 ALT 19 U/L (0-33) 10/04/22 19:50 Alkaline Phosphatase 88 U/L (35-105) 10/04/22 19:50 Troponin T Baseline 8 ng/L (0-10) 10/04/22 19:50 Troponin T 120 Minute 7.03 ng/L (0-10) 10/04/22 21:44 Total Protein 8.3 g/dL (6.6-8.7) 10/04/22 19:50 Albumin 4.5 g/dL (3.5-5.2) 10/04/22 19:50 Globulin 3.8 g/dL (1.3-4.6) 10/04/22 19:50 Lipase 25 U/L (13-60) 10/04/22 19:50 Discharge Plan Discharge Patient Disposition: Home Clinical Impression: Nonspecific chest pain Condition: Stable Prescriptions: No Action lovastatin 40 mg tablet 40 mg PO DAILY Qty: 90 1RF lisinopril 20 mg tablet 20 mg PO DAILY Qty: 90 1RF amlodipine 10 mg tablet 10 mg PO DAILY Qty: 90 1RF Discharge Orders: Discharge ED (Routine); Ordered 10/04/22 Ordered By: Zay Chawla Referrals: Brandie Allred FNP-C [Primary Care Provider] - Coding Level of Care Code ED Social Services Designee for Chg Fwd Exam Comprehensive
[2022-10-04 20:08] LABS: Basophils # 0.1 10^3/uL (0.0-0.1); Basophils % 0.8 %; Eosinophils # 0.2 10^3/uL (0.0-0.8); Eosinophils % 1.4 %; Hematocrit 43.9 % (37.0-47.0); Hemoglobin 14.2 g/dL (11.5-15.3); Lymphocytes # 3.2 10^3/uL (0.8-4.8); Lymphocytes % 30.2 %; Mean Corpuscular HGB Conc 32.3 g/dL (30.0-36.0); Mean Corpuscular Hemoglobin 28.5 pg (28.0-34.0); Monocytes % 8.9 %; Neutrophils # 6.24 10^3/uL (1.8-7.7); Neutrophils % 58.5 %; Nucleated Red Blood Cells % 0 %; Platelet Count 227 10^3/cmm (130-400); Red Blood Count 4.99 10^6/uL (4.1-5.3); Red Cell Distribution Width 12.5 % (12.1-15.1); White Blood Count 10.7 10^3/uL (4.0-10.0)
[2022-10-04 20:23] LABS: D Dimer 0.43 ug/mIFEU (0-0.59)
--- NOTE | 2022-10-04 20:26 | CTR_ITS ---
PROCEDURE INFORMATION: Exam: CTA Chest With Contrast Exam date and time: 10/04/2022 9:22 PM Age: 72 years old Clinical indication: Shortness of breath and other: D dimer 0.43, pain between shoulder blades; Additional info: Concern for dissection TECHNIQUE: Imaging protocol: Computed tomographic angiography of the chest with contrast. 3D rendering (Not supervised by radiologist): MIP and/or 3D reconstructed images were created by the technologist. Radiation optimization: All CT scans at this facility use at least one of these dose optimization techniques: automated exposure control; mA and/or kV adjustment per patient size (includes targeted exams where dose is matched to clinical indication); or iterative reconstruction. Contrast material: OMNIPAQUE 350; Contrast volume: 95 ml; Contrast route: INTRAVENOUS (IV); COMPARISON: CR (CHEST, ) 10/04/2022 7:52 PM RADIATION DOSE METRICS: Total DLP (mGy-cm): 636.24 FINDINGS: Pulmonary arteries: Overall exam quality is good for evaluating the pulmonary arteries. There are no intraluminal filling defects to indicate pulmonary embolism. Aorta: The thoracic aorta is normal in size. No dissection, wall thickening or aneurysm. Lungs: There are calcified pulmonary granulomas especially in the superior segment of the right lower lobe. Localized fibrotic changes in the lung apices and in the lung bases. No pneumonia or mass. Pleural spaces: Unremarkable. No pneumothorax. No pleural effusion. Heart: Unremarkable. No cardiomegaly. No pericardial effusion. Coronary arteries: No visible calcified plaque in the coronary arteries. Lymph nodes: Incidental calcified mediastinal nodes. Diaphragm: There is a 3.1 cm nonobstructing hiatus hernia. Liver: Incidental 3 cm simple hepatic cyst. Bones/joints: Unremarkable. No acute fracture. Soft tissues: Unremarkable. CT/CT angio chest [id number] IMPRESSION: 1. No pulmonary embolism or pneumonia. 2. No thoracic aortic aneurysm or dissection. 3. Hiatus hernia. 4. Other chronic or incidental findings as described.
[2022-10-04 20:28] VITALS: BP 129/76; PULSE 77; RESP 16; O2SAT 96
[2022-10-04 20:36] LABS: Alanine Aminotransferase 19 U/L (0-33); Albumin Level 4.5 g/dL (3.5-5.2); Alkaline Phosphatase 88 U/L (35-105); Anion Gap 17.6 (5-19); Aspartate Amino Transferase 24 U/L (0-32); Blood Urea Nitrogen 16 mg/dL (8-23); Calcium 9.4 mg/dL (8.5-10.5); Carbon Dioxide 24 mmol/L (22-29); Chloride 104 mmol/L (98-107); Creatinine Clr Calc Pharmacy 70.5294; Globulin 3.8 g/dL (1.3-4.6); Glomerular Filtration Rate 82.7 mL/min (90-130); Glucose 116 mg/dL (65-115); Lipase 25 U/L (13-60); Osmolality Calculated 296 mOsm/kg (285-295); Potassium 3.6 mmol/L (3.5-5.1); Sodium 142 mmol/L (136-145); Total Bilirubin 0.7 mg/dL (0.15-1.2); Total Protein 8.3 g/dL (6.6-8.7)
[2022-10-04 20:39] LABS: Troponin(5th) Baseline 8 ng/L (0-10)
[2022-10-04 20:53] VITALS: BP 133/70; PULSE 72; RESP 16; O2SAT 97
[2022-10-04] MEDS: iohexol 350 mg/mL 500 mL Btl (per mL) IV (21:29)
--- NOTE | 2022-10-04 22:01 | ECG_ITS ---
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 Measurements Intervals [place] Rate: 72 P: 71 TN: 193 QRS: 50 QRSD: 78 T: 52 QT: 377 QTc: 413 Interpretive Statements SINUS RHYTHM No previous ECG available for comparison Electronically Signed On 10-05-2022 17:55:00 PROFESSOR OF BIOCHEMISTRY by Víctor Garsia M.D. [id number]
[2022-10-04 22:46] LABS: Troponin 5 2HR 7.03 ng/L (0-10)
[2022-10-04 23:37] LABS: Troponin 5 2HR Delta -0.97 ABS# (0-10)
== END 2022-10-04 23:03 | disposition home or self-care (01) ==
PROVIDERS: Emergency Provider Emergency Medicine; PCP Nurse Practitioner Family
DX: R07.89 Other chest pain (principal); I10 Essential (primary) hypertension; E78.5 Hyperlipidemia, unspecified
CPT/HCPCS: 71045; 71275; 80053; 83690; 84484; 85025; 85378; 93005; 99285; Q9967

== ENCOUNTER 2022-10-11 18:42 | Emergency (ER) | payer MEDICARE, SELFPAY ==
[2022-10-11 19:00] VITALS: BP 107/65; PULSE 92; RESP 18; TEMP 36.8; O2SAT 95; BMI 25.0
--- NOTE | 2022-10-11 19:02 | XRR_ITS ---
PROCEDURE INFORMATION: Exam: XR Chest Exam date and time: 10/11/2022 7:08 PM Age: 72 years old Clinical indication: Chest wall pain; Additional info: Cp TECHNIQUE: Imaging protocol: Radiologic exam of the chest. Views: 1 view. COMPARISON: CR (CHEST, ) 10/04/2022 7:52 PM FINDINGS: Lungs: There is an unchanged calcified granuloma right upper lobe. Lungs are hyperinflated with mild coarsening of the interstitial lung markings of probable mild fibrosis. There is linear atelectasis and scarring in the right lung base. Pulmonary vascularity is within normal limits. No lobar consolidation. Pleural spaces: Unremarkable. No pleural effusion. No pneumothorax. Heart/Mediastinum: Unremarkable. No cardiomegaly. Bones/joints: No acute abnormality. XR/XR chest 1V portable [id number] IMPRESSION: No active pulmonary disease.
--- NOTE | 2022-10-11 19:02 | ECG_ITS ---
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 Measurements Intervals [place] Rate: 97 P: 63 NM: 148 QRS: 50 QRSD: 78 T: 64 QT: 336 QTc: 428 Interpretive Statements SINUS RHYTHM WITH SINUS ARRHYTHMIA Compared to ECG 10/04/2022 22:20:53 No significant changes Electronically Signed On 10-12-2022 8:01:36 FLAKER OPERATOR by Angela Aguilar M.D. [id number]
--- NOTE | 2022-10-11 19:03 | W.ED.WEAKNES ---
HPI - Weakness General: Chief complaint: Weakness Stated complaint: low bp Time Seen by Provider: 10/11/22 18:59 Source: patient Mode of arrival: ambulatory Limitations: no limitations History of Present Illness: 72-year-old female who was seen here 1 week ago states she was seen here a week ago she is having some back and chest pain she had a CT angio that was normal along with blood work that was normal states she is continue to have the same pain she is also been having increased weakness and fatigue she denies any pain currently but states she just feels generally weak she states that her blood pressure had been running low today she states it been running in the 70s but it is normal here 107/65 no chest pain currently denies any headache or vomiting or diarrhea or abdominal pain. She has had no fevers or cough. Associated symptoms: Reports chest pain; Denies dysuria, easy bruising, headache(s), nausea or vomiting Review of Systems Const: Reports: fatigue and malaise Eyes: Denies: blurry vision or eye discomfort ENMT: Denies: throat pain or dental pain Card: Reports: chest pain Resp: Denies: dyspnea GI: Denies: abdominal pain, nausea, vomiting or diarrhea : Denies: dysuria Musc: Denies: neck pain or back pain Skin/Breast: Denies: rash Neuro: Denies: headache(s) Psych: Denies: depression Nima/Lymph: Denies: easy bruising All/Imm: Denies: urticaria PFSH ED PFSH: Medical History (Updated 10/11/22 @ 20:39 by Donya Noriega MD) Essential (primary) hypertension Hepatic cyst 3cm 05/[address] 2018 Mixed hyperlipidemia Surgical History History of colonoscopy 2019 Hx of appendectomy Hx of endoscopy 2019 Hx of ovarian cyst Family History Mother Stroke Brother CAD (coronary artery disease) Denies family history of Clotting disorder Anesthesia complication Social History Smoking and tobacco status: never smoked Second hand smoke exposure: No Smoking risk assessment/counseling performed?: No Alcohol intake: never Desire information about alcohol rehabilitation?: No Counseling given: No Desire information about substance/drug rehabilitation?: No Counseling given: No Adopted: No Caregiver/support person: No Lives independently: Yes Household members: none Housing: House Marital status: / Number of children: 2 service: No Current occupational status: retired Current occupational exposures/hazards: No History of recent travel: No Current gender identity: Female Physical Exam Const: COMMON NORMALS: no acute distress, patient oriented x3 and healthy appearing HENMT: COMMON NORMALS: normocephalic and atraumatic HEAD & SCALP: normocephalic and atraumatic Eye: COMMON NORMALS: Equal, round and reactive pupils present and EOMs intact bilaterally PUPIL: Yes Equal, round and reactive pupils present Neck/C-Spine: COMMON NORMALS: full ROM and supple Chest: COMMONS NORMALS: normal inspection of the chest and normal palpation of entire chest wall Resp: COMMON NORMALS: normal respiratory effort, No retractions, No use of accessory muscles and clear to auscultation bilaterally AUSCULTATION: clear to auscultation bilaterally Cardio: COMMON NORMALS: regular rate, regular rhythm and No murmurs present (Cardio) RATE: regular rate RHYTHM: regular rhythm GI: COMMON NORMALS: Normal to inspection, nondistended, normoactive bowel sounds present, Soft to palpation, non-tender and no masses PALPATION: Yes Soft to palpation Extremity: COMMON NORMALS: normal to inspection and full ROM Neuro: COMMON NORMALS: patient oriented x3, moves all extremities and no focal motor deficits Psych: COMMON NORMALS: mental status grossly normal, Normal thought process present and cooperative THOUGHT PROCESS: Normal thought process present Skin: COMMON NORMALS: no rashes or lesions noted and no wounds GENERAL SKIN EXAM: no rashes or lesions noted Course Vital Signs: Vital signs: Vital Signs Temperature 98.2 F 10/11/22 19:00 Pulse Rate 74 10/11/22 20:16 Respiratory Rate 18 10/11/22 19:00 Blood Pressure 109/63 10/11/22 20:16 Pulse Oximetry 95 10/11/22 20:16 Oxygen Delivery Me thod 10/11/22 20:16 MDM - Weakness Medical Decision Making Patient presents with generalized weakness she does have a urinary tract infection likely causing this alert vital signs are normal blood work is normal otherwise she has no signs of sepsis we will treat with IM antibiotics here discharge started on oral antibiotics she is to follow-up with her PCP in 5 to 7 days and return if worsening she understands agrees to plan. Lab Data 10/11/22 19:30 10/11/22 19: Radiology Impressions Chest X-Ray 10/11/22 19:02 IMPRESSION: No active pulmonary disease. Head CT 10/11/22 19:06 IMPRESSION: No acute intracranial abnormality. Laboratory Results WBC 5.2 10^3/uL (4.0-10.0) 10/11/22 19: RBC 4.50 10^6/uL (4.1-5.3) 10/11/22: Hgb 12.6 g/dL (11.5-15.3) 10/11/22: Hct 39.6 % (37.0-47.0) 10/11/22: MCV 88.0 fl (81-99) 10/11/22: MCH 28.0 pg (28.0-34.0) 10/11/22: MCHC 31.8 g/dL (30.0-36.0) 10/11/22: RDW 12.4 % (12.1-15.1) 10/11/22: Plt Count 165 10^3/cmm (130-400) 10/11/22: MPV 12.9 fL (7.4-10.4) H 10/11/22 19: Neut % (Auto) 47.2 % 10/11/22: Lymph % (Auto) 32.5 % 10/11/22: [place] % (Auto) 17.6 % 10/11/22 19: Eos % (Auto) 1.9 % 10/11/22: Baso % (Auto) 0.6 % 10/11/22: Neut # (Auto) 2.44 10^3/uL (1.8-7.7) 10/11/22: Lymph # (Auto) 1.7 10^3/uL (0.8-4.8) 10/11/22 19: [place] # (Auto) 0.9 10^3/uL (0.2-0.9) 10/11/22 19: Eos # (Auto) 0.1 10^3/uL (0.0-0.8) 10/11/22 19:30 Baso # (Auto) 0.0 10^3/uL (0.0-0.1) 10/11/22 19: Nucleated RBC % (auto) 0 % 10/11/22 19: Nucleated RBCs # 0.0 /100WBC 10/11/22 19: PT 13.20 SECONDS (12.1-14.9) 10/11/22: INR 0.97 (0.8-1.2) 10/11/22 19:30 Sodium 135 mmol/L (136-145) L 10/11/22 19: Potassium 3.7 mmol/L (3.5-5.1) 10/11/22: Chloride 98 mmol/L (98-107) 10/11/22: Carbon Dioxide 26 mmol/L (22-29) 10/11/22: Anion Gap 14.7 (5-19) 10/11/22: BUN 11 mg/dL (8-23) 10/11/22 19:30 Creatinine 0.7 mg/dL (0.5-0.9) 10/11/22 19: GFR Calculation 82.7 mL/min (90-130) L 10/11/22: Glucose 114 mg/dL (65-115) 10/11/22 19: Calculated Osmolality 280 mOsm/kg (285-295) L 10/11/22: Calcium 8.6 mg/dL (8.5-10.5) 10/11/22: Total Bilirubin 0.5 mg/dL (0.15-1.2) 10/11/22 19:30 AST 24 U/L (0-32) 10/11/22 19:30 ALT 15 U/L (0-33) 10/11/22 19:30 Alkaline Phosphatase 71 U/L (35-105) 10/11/22 19: Troponin T Baseline 7 ng/L (0-10) 10/11/22 19:30 Total Protein 7.2 g/dL (6.6-8.7) 10/11/22: Albumin 3.9 g/dL (3.5-5.2) 10/11/22 19:30 Globulin 3.3 g/dL (1.3-4.6) 10/11/22 19:30 Lipase 24 U/L (13-60) 10/11/22 19:30 TSH 2.02 uIU/mL (0.27-4.20) 10/11/22 19:30 Urine Color Yellow (Yellow) 10/11/22 19:40 Urine Appearance Clear (CLEAR) 10/11/22 19:40 Urine pH 5 (5-7) 10/11/22 19:40 Ur Specific [place] 1.010 (1.005-1.030) 10/11/22 19:40 Urine Protein 1+ (Negative) H 10/11/22 19:40 Urine Glucose (UA) Norm (Normal) 10/11/22 19:40 Urine Ketones Negative (Negative) 10/11/22 19:40 Urine Blood 2+ (Negative) H 10/11/22 19:40 Urine Nitrate Negative (Negative) 10/11/22 19:40 Urine Bilirubin Neg (Negative) 10/11/22 19:40 Urine Urobilinogen Norm mg/dL (Negative) 10/11/22 19:40 Ur Leukocyte Esterase 2+ (Negative) H 10/11/22 19:40 Urine RBC 0-4 /hpf (0-2) H 10/11/22 19:40 Urine WBC Too numerous to cnt /hpf (0-5) H 10/11/22 19:40 Ur Squamous Epith Cells 0-4 /hpf (0-5) H 10/11/22 19:40 Amorphous Sediment Not Reportable 10/11/22 19:40 Urine Bacteria 4+ /hpf (NONE) H 10/11/22 19:40 EKG Data EKG 1: I personally reviewed and interpreted this EKG as follows: EKG interpretation date: 10/11/22 EKG interpretation time: 19:07 Interpretation: nsr hr [address] or t wave abnormalities qrs 78 qtc 390 Discharge Plan Discharge Patient Disposition: Home Clinical Impression: Acute UTI Condition: Stable Prescriptions: New cephalexin 500 mg capsule 500 mg PO TID 7 Days Qty: 21 0RF No Action lovastatin 40 mg tablet 40 mg PO DAILY Qty: 90 1RF lisinopril 20 mg tablet 20 mg PO DAILY Qty: 90 1RF amlodipine 10 mg tablet 10 mg PO DAILY Qty: 90 1RF Discharge Orders: Discharge ED (Routine); Ordered 10/11/22 Ordered By: Donya Noriega Referrals: Brandie Allred FNP-C [Primary Care Provider] - 1-3 days Discharge Diet: Advance as tolerated Discharge Activity: Resume usual activity Patient Instructions: Urinary Tract Infection in Women (ED) Coding Level of Care Code ED Police Radio Dispatcher for Chg Fwd Exam Comprehensive
--- NOTE | 2022-10-11 19:06 | CTR_ITS ---
PROCEDURE INFORMATION: Exam: CT Head Without Contrast Exam date and time: 10/11/2022 7:13 PM Age: 72 years old Clinical indication: Dizziness and weakness, extremity; Additional info: Weakness, fluctuating blood pressure TECHNIQUE: Imaging protocol: Computed tomography of the head without contrast. Radiation optimization: All CT scans at this facility use at least one of these dose optimization techniques: automated exposure control; mA and/or kV adjustment per patient size (includes targeted exams where dose is matched to clinical indication); or iterative reconstruction. COMPARISON: No relevant prior studies available. RADIATION DOSE METRICS: Total DLP (mGy-cm): 1016.38 FINDINGS: Brain: There is volume loss and periventricular low density compatible with chronic small vessel disease changes. There is no acute intracranial hemorrhage, edema or mass effect. Cerebral ventricles: No ventriculomegaly. Paranasal sinuses: There is patchy mucosal thickening in the sinuses. No air-fluid levels. Mastoid air cells: Visualized mastoid air cells are well aerated. Bones/joints: Unremarkable. No acute fracture. Soft tissues: Unremarkable. CT/CT head wo con* [id number] IMPRESSION: No acute intracranial abnormality.
[2022-10-11 19:51] LABS: Basophils % 0.6 %; Eosinophils # 0.1 10^3/uL (0.0-0.8); Eosinophils % 1.9 %; Hematocrit 39.6 % (37.0-47.0); Hemoglobin 12.6 g/dL (11.5-15.3); Lymphocytes # 1.7 10^3/uL (0.8-4.8); Lymphocytes % 32.5 %; Mean Corpuscular HGB Conc 31.8 g/dL (30.0-36.0); Mean Platelet Volume 12.9 fL (7.4-10.4); Monocytes # 0.9 10^3/uL (0.2-0.9); Monocytes % 17.6 %; Neutrophils # 2.44 10^3/uL (1.8-7.7); Neutrophils % 47.2 %; Nucleated Red Blood Cells % 0 %; Platelet Count 165 10^3/cmm (130-400); Red Cell Distribution Width 12.4 % (12.1-15.1); White Blood Count 5.2 10^3/uL (4.0-10.0)
[2022-10-11 19:56] LABS: INR 0.97 (0.8-1.2)
[2022-10-11 20:09] LABS: Troponin(5th) Baseline 7 ng/L (0-10)
[2022-10-11 20:11] LABS: Add Urine Microscopic? YES; Bilirubin Urine Neg (Negative); Blood Urine 2+ (Negative); Glucose Urine UA Norm (Normal); Ketones Urine Negative (Negative); Leukocyte Esterase Urine 2+ (Negative); Nitrate Urine Negative (Negative); Protein Urine 1+ (Negative); Urine Appearance Clear (CLEAR); Urine Color Yellow (Yellow); Urobilinogen Urine Norm (Negative); pH Urine 5 (5-7)
[2022-10-11 20:12] LABS: Add Urine Culture? Yes; Bacteria Urine 4+ /hpf; RBC Urine 0-4 /hpf (0-2); Squamous Epithelial Cell Urine 0-4 /hpf (0-5); WBC Urine TOO NUMEROUS TO CNT /hpf (0-5)
[2022-10-11 20:16] VITALS: BP 109/63; PULSE 74; O2SAT 95
[2022-10-11 20:18] LABS: Alanine Aminotransferase 15 U/L (0-33); Albumin Level 3.9 g/dL (3.5-5.2); Alkaline Phosphatase 71 U/L (35-105); Anion Gap 14.7 (5-19); Aspartate Amino Transferase 24 U/L (0-32); Blood Urea Nitrogen 11 mg/dL (8-23); Calcium 8.6 mg/dL (8.5-10.5); Carbon Dioxide 26 mmol/L (22-29); Chloride 98 mmol/L (98-107); Creatinine Clr Calc Pharmacy 70.5294; Globulin 3.3 g/dL (1.3-4.6); Glomerular Filtration Rate 82.7 mL/min (90-130); Glucose 114 mg/dL (65-115); Lipase 24 U/L (13-60); Osmolality Calculated 280 mOsm/kg (285-295); Potassium 3.7 mmol/L (3.5-5.1); Sodium 135 mmol/L (136-145); Thyroid Stimulating Hormone 2.02 uIU/mL (0.27-4.20); Total Bilirubin 0.5 mg/dL (0.15-1.2); Total Protein 7.2 g/dL (6.6-8.7)
[2022-10-11] MEDS: cefTRIAXone 1,000 MG in sodium chloride 0.9% (plus) 50 ML 100 MG IV (21:13)
[2022-10-11 21:15] VITALS: BP 116/65; PULSE 69; O2SAT 94
[2022-10-11 21:41] VITALS: BP 106/50; PULSE 76; RESP 16; O2SAT 97
== END 2022-10-11 21:37 | disposition home or self-care (01) ==
PROVIDERS: Emergency Provider Emergency Medicine; PCP Nurse Practitioner Family
DX: N39.0 Urinary tract infection, site not specified (principal); I10 Essential (primary) hypertension; E78.2 Mixed hyperlipidemia
CPT/HCPCS: 70450; 71045; 80053; 81001; 83690; 84443; 84484; 85025; 85610; 87077; 87086; 87186; 93005; 96365; 99285; J0696

== ENCOUNTER → 2022-10-20 13:27 | Outpatient (BNVA) | payer MEDICARE, SELFPAY | PROVIDERS: PCP Nurse Practitioner Family; Visit Provider Nurse Practitioner Family | DX: N39.0 Urinary tract infection, site not specified (principal) | CPT/HCPCS: 81000 ==

== ENCOUNTER → 2022-11-25 13:06 | Outpatient (BNVA) | payer MEDICARE, SELFPAY | PROVIDERS: PCP Nurse Practitioner Family; Visit Provider Internal Medicine | DX: I10 Essential (primary) hypertension (principal); R07.9 Chest pain, unspecified | CPT/HCPCS: 99204 ==

== ENCOUNTER 2022-12-22 14:35 | Outpatient (CLI) | payer MEDICARE, SELFPAY ==
--- NOTE | 2022-12-22 15:00 | USCV_ITS ---
Briseida Byrne Age: 72 Gender: F : 1950 Exam Date: 12/22/2022 15:02 Ordering Phys: Víctor Garsia M.D ([email or web address]) Technologist: Anni Ch Exam Location: [facility] Indication: sob/htn BP: 130 / 70 HR: 75 Rhythm: Sinus Technical Quality: Adequate MEASUREMENTS (Male / Female) Normal Values 2D ECHO LV Diastolic Diameter PLAX 4.1 cm 4.2 - 5.9 / 3.9 - 5.3 cm LV Systolic Diameter PLAX 2.4 cm IVS Diastolic Thickness 0.8 cm 0.6 - 1.0 / 0.6 - 0.9 cm IVS Systolic Thickness 1.5 cm LVPW Diastolic Thickness 0.8 cm 0.6 - 1.0 / 0.6 - 0.9 cm LVPW Systolic Thickness 1.4 cm LVOT Diameter 2.0 cm LV Ejection Fraction 2D Teich 72.7 % LV Ejection Fraction MOD 2C 73.1 % LV Ejection Fraction 2C AL 73.8 % LA Diameter 2.0 cm LA Width 3.2 cm LA Height 3.9 cm RA Width 2.6 cm RA Height 3.1 cm Aorta at Sinotubular Diameter 0.0 cm IVC Diameter 1.2 cm M-MODE MV E Point Septal Separation 0.3 cm DOPPLER AV Peak Velocity 151.0 cm/s LVOT Peak Velocity 164.0 cm/s AV Area Cont Eq vti 2.9 cm squared AV Area Cont Eq pk 3.4 cm squared MV Peak Velocity 94.0 cm/s MV Area PHT 2.7 cm squared Mitral E to A Ratio 0.8 MV E' Velocity 35.5 cm/s Mitral E to MV E' Ratio 8.1 Mitral E to LV E' Lateral Ratio 8.7 Mitral E to LV E' Septal Ratio 7.6 TR Peak Velocity 170.8 cm/s TR Peak Gradient 11.7 mmHg Right Atrial Pressure 5.0 mmHg Pulmonary Artery Systolic Pressu 16.7 mmHg PV Peak Velocity 121.0 cm/s RV Acceleration Time 0.1 s RV Ejection Time 0.3 s RV AcT/ET 0.5 FINDINGS Left Ventricle Normal left ventricular size and systolic function, EF 64 %. No regional wall motion abnormalities. Grade I/IV diastolic dysfunction (abnormal relaxation filling pattern), normal to mildly elevated filling pressures. Right Ventricle The right ventricle is normal in size and function. Right Atrium The right atrium is normal in size. Left Atrium The left atrium is normal in size. Mitral Valve Trace mitral valve regurgitation. Aortic Valve No gross abnormalities noted Tricuspid Valve No gross abnormalities noted Pulmonic Valve No gross abnormalities noted Pericardium No pericardial effusion. Aorta Normal ascending aorta dimension. IVC The inferior vena cava appears normal. CONCLUSIONS Normal left ventricular size and systolic function, EF 64 %. No regional wall motion abnormalities. Grade I/IV diastolic dysfunction (abnormal relaxation filling pattern), normal to mildly elevated filling pressures. Trace mitral valve regurgitation. Normal cardiac chamber sizes There is no pericardial effusion. There are no intracardiac masses. Compared to the study from 10/12/2021, there may not be a significant change Dr Stephanie Reyes MD FAC (Electronically Signed) Final Date: 25 December 2022 19:31 S
== END 2022-12-22 14:36 | disposition home or self-care (01) ==
PROVIDERS: PCP Nurse Practitioner Family; Visit Provider Internal Medicine
DX: R06.02 Shortness of breath (principal); I10 Essential (primary) hypertension; I34.0 Nonrheumatic mitral (valve) insufficiency
CPT/HCPCS: 93306

== ENCOUNTER 2022-12-28 07:43 | Outpatient (CLI) | payer MEDICARE, SELFPAY ==
[2022-12-28 07:53] VITALS: BMI 24.6
--- NOTE | 2022-12-28 08:10 | ECG_ITS ---
[facility] Test Date: 2022-12-28 Pat Name: Briseida Byrne Department: Room: Gender: Female Clinical Audiologist: : 1950 Requested By: Víctor Garsia Order Number: [id number] Jose Juan MD: Stephanie Reyes M.D. Interpretive Statements NAME OF STUDY: EXERCISE SESTAMIBI STRESS TEST INDICATION: Chest Pain, PROCEDURE: The baseline electrocardiogram showed normal sinus rhythm with normal ST-Ts. Possible old septal CA. At the baseline, the patient's blood pressure was mm Hg with a heart rate of. The patient exercised for 5 minutes and 2 seconds on a standard Kwesi protocol. Patient attained a maximum heart rate of 165 beats per minute(110% of the maximum predicted heart rate) with a blood pressure at the peak exercise of 215/78 mm Hg. The EKG at the peak exercise revealed no significant changes. Patient did not have any chest pain or any significant arrhythmis with the exercise Sestamibi was injected 1 minute prior to the peak exercise During the recovery phase, there were no new changes. Blood pressure at the end of the recovery phase was 141/72 mm Hg with a heart rate of 113 per minute. CONCLUSION: 1. No significant EKG changes with the [treadmill exercise 2. No exercise-induced chest pain or cardiac arrhythmia 3. Impaired exercise tolerance, attained a maximum of 7.0 METs 4. Sestamibi/Sestamibi perfusion results pending; see separate report. Electronically Signed On 12-28-2022 16:37:57 CDT by Stephanie Reyes M.D. [email or web address]
--- NOTE | 2022-12-28 08:11 | NMCV_ITS ---
NM romina perf SPECT r/s* [id number] Briseida Byrne Age: 72 Gender: F : 1950 Exam Date: 12/28/2022 08:11 Ordering Phys: Víctor Garsia M.D ([email or web address]) Technologist: ALISON Cardenas Exam Location: [facility] Indications: CHEST PAIN STRESS TEST Please see separate stress test report in [facility] for full findings IMAGE PROTOCOL Rest/Stress 1 Exercise Day Radiopharmaceutical Dose (mCi) Administration Site Administered by Rest: Tc-99m 10.6 IV ALISON Villarreal Sestamibi Stress:Tc-99m 32.4 IV ALISON Villarreal Sestamisalo Rest: 28-Dec-2022 60 Discovery 630 Stress: 28-Dec-2022 30 Discovery 630 Radiopharmaceutical was injected at 100% maximum heart rate. Images obtained in supine and prone position. SPECT RESULTS Technical Quality: Excellent Raw Data Analysis: Normal Image Corrections: No attenuation or motion correction applied Summed Stress Score: 0 Summed Rest Score: 0 Summed Difference Score: 0 PERFUSION FINDINGS Uniform myocardial tracer uptake with no significant perfusion abnormalities FUNCTIONAL RESULTS (calculated via Gated SPECT) Stress Image LV EF (%): 90 Stress EDV (mL):51 TID: 0.42 Stress ESV (mL):5 FUNCTIONAL FINDINGS: Segmental wall motion analysis revealing no gross wall motion abnormalities IMPRESSIONS 1. Unremarkable Myocardial perfusion imaging 2. Normal LV ejection fraction 80%. 3. LV wall motion analysis revealing no gross wall motion abnormalities. 4. Normal LV volume Low probability for coronary ischemia, based on the above findings Dr Stephanie Reyes MD FAC (Electronically Signed) Final Date: 28 December 2022 11:32 S
[2022-12-28 09:53] VITALS: BP 141/72; PULSE 111
== END 2022-12-28 07:44 | disposition home or self-care (01) ==
PROVIDERS: PCP Nurse Practitioner Family; Visit Provider Internal Medicine
DX: R07.9 Chest pain, unspecified (principal)
CPT/HCPCS: 36415; 78452; 93017; A9500

== ENCOUNTER → 2023-01-27 09:08 | Outpatient (BNVA) | payer MEDICARE, SELFPAY | PROVIDERS: PCP Nurse Practitioner Family; Visit Provider Nurse Practitioner Family | DX: I10 Essential (primary) hypertension (principal) | CPT/HCPCS: 80053; 80061; 84443; 85025 ==

== ENCOUNTER 2023-02-24 11:41 | Outpatient (CLI) | payer MEDICARE, SELFPAY ==
--- NOTE | 2023-02-24 12:04 | MM_ITS ---
WS: [id number] BILATERAL 3D TOMOSYNTHESIS DIGITAL SCREENING MAMMOGRAPHY WITH CAD CLINICAL INFORMATION: breast cancer screening HISTORY: Screening mammogram. No current complaints. COMPARISON: None. TECHNIQUE: Bilateral CC and MLO views. FINDINGS: Scattered fibroglandular densities bilaterally. No suspicious focal mass, asymmetry, calcifications, or architectural distortion. No evidence of malignancy. Punctate and lucent centered calcifications. Vascular calcification. MM/[place] [id number] IMPRESSION: BI-RADS: 2-Benign FOLLOW UP: 1 Year Follow-up Recommend return to annual screening mammography.
== END 2023-02-24 11:42 | disposition home or self-care (01) ==
LOC: RAD 11:44
PROVIDERS: PCP Nurse Practitioner Family; Visit Provider Nurse Practitioner Family
DX: R07.9 Chest pain, unspecified (principal); I10 Essential (primary) hypertension; Z12.31 Encounter for screening mammogram for malignant neoplasm of breast
CPT/HCPCS: 77063; 77067; 99214

== ENCOUNTER → 2023-07-25 09:33 | Outpatient (BNVA) | payer MEDICARE, SELFPAY | PROVIDERS: PCP Nurse Practitioner Family; Visit Provider Nurse Practitioner Family | DX: I10 Essential (primary) hypertension (principal); E78.2 Mixed hyperlipidemia | CPT/HCPCS: 80053; 80061; 84443; 85025 ==

== ENCOUNTER → 2024-01-09 09:31 | Outpatient (BNVA) | payer MEDICARE, SELFPAY | PROVIDERS: PCP Nurse Practitioner Family; Visit Provider Nurse Practitioner Family | DX: I10 Essential (primary) hypertension (principal); R07.9 Chest pain, unspecified; E78.2 Mixed hyperlipidemia | CPT/HCPCS: 80053; 80061; 84443; 85025 ==

== ENCOUNTER → 2024-06-04 12:01 | Outpatient (BNVA) | payer MEDICARE, SELFPAY | PROVIDERS: PCP Nurse Practitioner Family; Visit Provider Internal Medicine | DX: I10 Essential (primary) hypertension (principal); R07.9 Chest pain, unspecified | CPT/HCPCS: 99213 ==

== ENCOUNTER → 2024-06-25 09:05 | Outpatient (BNVA) | payer MEDICARE, SELFPAY | PROVIDERS: PCP Nurse Practitioner Family; Visit Provider Nurse Practitioner Family | DX: I10 Essential (primary) hypertension (principal); E78.2 Mixed hyperlipidemia; R07.9 Chest pain, unspecified | CPT/HCPCS: 80053; 80061; 84443; 85025 ==

== ENCOUNTER → 2024-12-10 09:31 | Outpatient (BNVA) | payer MEDICARE, SELFPAY | PROVIDERS: PCP Nurse Practitioner Family; Visit Provider Nurse Practitioner Family | DX: I10 Essential (primary) hypertension (principal); E78.2 Mixed hyperlipidemia; R07.9 Chest pain, unspecified | CPT/HCPCS: 80053; 80061; 84443; 85025 ==

== ENCOUNTER 2024-12-25 11:14 | Outpatient (CLI) | payer MEDICARE, SELFPAY ==
--- NOTE | 2024-12-25 11:30 | MM_ITS ---
WS: [id number] BILATERAL 3D TOMOSYNTHESIS DIGITAL SCREENING MAMMOGRAPHY WITH CAD CLINICAL INFORMATION: Z12.39 - Encounter for other screening for malignant neop... HISTORY: Screening mammogram. No current complaints. COMPARISON: 2022 TECHNIQUE: Bilateral CC and MLO views. FINDINGS: Scattered fibroglandular densities bilaterally. No suspicious focal mass, asymmetry, calcifications, or architectural distortion. No evidence of malignancy. Vascular calcification. Incidental punctate calcifications. MM/MM [facility] tomosynthesis [id number] IMPRESSION: DENSITY: There are scattered areas of fibroglandular density. BI-RADS: 2 - Benign. FOLLOW UP: 1 Year Follow-up Recommend return to annual screening mammography.
== END 2024-12-25 11:15 | disposition home or self-care (01) ==
PROVIDERS: PCP Nurse Practitioner Family; Visit Provider Nurse Practitioner Family
DX: Z12.31 Encounter for screening mammogram for malignant neoplasm of breast (principal); R92.323 Mammographic fibroglandular density, bilateral breasts; R92.1 Mammographic calcification found on diagnostic imaging of breast
CPT/HCPCS: 77063; 77067

== ENCOUNTER → 2025-06-03 12:24 | Outpatient (BNVA) | payer MEDICARE, SELFPAY | PROVIDERS: PCP Nurse Practitioner Family; Visit Provider Internal Medicine | DX: I10 Essential (primary) hypertension (principal) | CPT/HCPCS: 99213 ==

== ENCOUNTER → 2025-06-10 13:31 | Outpatient (BNVA) | payer MEDICARE, SELFPAY | PROVIDERS: PCP Nurse Practitioner Family; Visit Provider Nurse Practitioner Family | DX: I10 Essential (primary) hypertension (principal); R07.9 Chest pain, unspecified | CPT/HCPCS: 80053; 80061; 84443; 85025 ==